=== PATIENT | male | born 1960 | race Caucasian/White ===

== ENCOUNTER 2017-08-26 16:36 | Emergency (ER) | payer OTHER ==
[2017-08-26 17:55] LABS: BASOPHILS 0.7 % (0-2); HEMOGLOBIN 17.8 g/dL (13.5-17.5); IMMATURE GRANULOCYTES 0.3 % (0-5); LYMPHOCYTES 14.9 % (15-50); MCH 30.9 pg (26.0-34.0); MCHC 34.9 g/dL (31.0-37.0); MCV 88.5 fL (80.0-100.0); MEAN PLATELET VOLUME 9.6 fL (7.4-10.4); MONOCYTES 10.3 % (2-11); NEUTROPHILS 63.8 % (40-80); PLATELET COUNT 201 10x3/uL (130-400); RBC 5.76 10x6/uL (4.20-6.10); RDW 12.8 % (11.5-14.5)
[2017-08-26 18:14] LABS: ALBUMIN 3.9 g/dL (3.4-5.0); ANION GAP 14.6 mmol/L (8-16); BILIRUBIN - TOTAL 1.13 mg/dL (0.2-1.3); CALCIUM 9.3 mg/dL (8.5-10.1); CARBON DIOXIDE 25.5 mmol/L (21.0-32.0); CREATININE - SERUM 1.4 mg/dL (0.6-1.3); POTASSIUM - SERUM 4.1 mmol/L (3.5-5.1); PROTEIN - SERUM 8.4 g/dL (6.4-8.2)
[2017-08-26 18:37] LABS: APPEARANCE CLEAR (CLEAR); BILIRUBIN NEGATIVE (NEGATIVE); COLOR YELLOW (YELLOW); GLUCOSE NEGATIVE (NEGATIVE); KETONE NEGATIVE (NEGATIVE); NITRITE NEGATIVE (NEGATIVE); PROTEIN NEGATIVE (NEGATIVE); UROBILINOGEN NORMAL (NORMAL)
[2017-09-21 14:54] VITALS: BMI 26.9
== END 2017-08-26 20:28 | disposition home or self-care (01) ==
LOC: D.ER 16:36
PROVIDERS: Emergency Medicine
DX: R10.11 Right upper quadrant pain (principal); K80.50 Calculus of bile duct without cholangitis or cholecystitis without obstruction

== ENCOUNTER 2017-08-28 03:48 | Inpatient (IN) | payer OTHER ==
[~2017-08-28] VITALS: Ht 188 cm; Wt 106.1 kg
[2017-08-28] VITALS (11 sets, daily range): BP systolic 104–155; BP diastolic 61–88; BMI 30.1
--- NOTE | ~2017-08-28 | DS ---
PATIENT:SHERIN MARSHALL :56 MEDICAL RECORD: [id number] DISCHARGE SUMMARY ADMISSION DATE: 08/30/17 DISCHARGE DATE: 09/04/17 DATE OF ADMISSION: 08/28/2017. DATE OF DISCHARGE: 09/04/2017. ADMISSION DIAGNOSES: 1. Acute cholecystitis. 2. Acute renal failure. 3. Anxiety disorder. DISCHARGE DIAGNOSES: 1. Acute cholecystitis. 2. Anxiety disorder. 3. Acute renal failure, resolved. 4. Small bowel ischemia. 5. Mesenteric thrombosis. CONSULTATIONS: To hematology and oncology with Dr. England. REPORT OF HOSPITALIZATION: The patient was admitted to the hospital with severe abdominal pain. It was felt to be from acute cholecystitis. At the day of surgery, he was noted to have ischemic small bowel, so a small bowel resection was performed at the time of laparoscopic cholecystectomy. Postoperatively, the patient had a postoperative ileus. This eventually resolved and the patient was able to be started on a diet. He still had some signs of ileus at the time of discharge, but the patient was adamant that he was ready to go home and said he has been tolerating clear liquid diet and had a bowel movement. At that point, he was set up for discharge home. Dr. England had been consulted to see the patient and ordered a bunch of lab work that was going to be evaluated with the patient on an outpatient basis. During the patient's hospitalization, his path report came back showing that there were multiple thromboses in the mesenteric vessels from the small bowel resection. The patient was discharged home on a regular diet. DISCHARGE INSTRUCTIONS: Return to clinic or call if any questions or concerns, fevers, chills, nausea, vomiting, or worsening abdominal pain. ACTIVITIES: No heavy lifting or straining for 6 weeks postoperatively. FOLLOWUP: In clinic with me in 1-2 weeks. DISCHARGE MEDICATIONS: Resume home meds with the inclusion of Center 10. TRANSINT:[id number] Voice Confirmation ID: [id number] DOCUMENT ID: [id number] DISCHARGE SUMMARY REPORT [id number] SHERIN MARSHALL CHRISTIAN MD at 1031 CC: [id number] DICTATION DATE: 09/25/17 1408 AEROSPACE ENGINEER OFFICER ARMAMENT: 09/26/17 1102 DIS IN 09/04/17 [place] [id number]
--- NOTE | ~2017-08-28 | OP ---
PATIENT NAME: SHERIN MARSHALL MEDICAL RECORD: [id number] :56 LOCATION:[address] [id number] ADMISSION DATE:08/30/17 SURGEON: CONOR PULIDO MD DATE OF OPERATION: 08/28/2017 PREOPERATIVE DIAGNOSES: 1. Acute cholecystitis. 2. Anxiety disorder. POSTOPERATIVE DIAGNOSES: 1. Acute cholecystitis. 2. Anxiety disorder. 3. Ischemic small bowel. SURGEON: Conor Pulido MD PROCEDURE: 1. Laparoscopic cholecystectomy. 2. Small bowel resection. REPORT OF OPERATION: The patient's abdomen was prepped and draped in sterile fashion. A cutdown was made on the superior aspect of the umbilicus, 0 Vicryls were placed in the fascia bilaterally and the fascia was incised with 15-blade. I then bluntly entered the peritoneal cavity and placed a 12-mm Favian port. After insufflation was obtained, a camera was inserted. Upon immediate inspection, we could see there was some ischemic appearing small bowel present in the left lateral abdomen. At this point, I was able to look around and see there was some ascitic fluid present, but no sign of any succuss or bile. A decision was made just to extend this incision and perform a hand-assisted procedure. The incision was extended superiorly after the 12-mm trocar was removed. A GelPort was inserted. We were able to eviscerate the small bowel through the wound protector of the Gelport and see that there was about a foot to a foot and a half segment of small bowel that was acutely inflamed in the proximal jejunum. The mesentery was also markedly swollen. We could follow this proximally and distally and see that the bowel was normal on each side. There was no sign of necrosis to the bowel. There was no sign of perforation or gangrene. The small bowel was transected proximally and distally on what appeared to be normal appearing bowel using a 55 blue load MARJ stapler. The mesentery was taken down with sequential clamp and tie technique with 2-0 silk ties. A iclm-tf-xxyb anastomosis was performed of the small bowel using a 55 blue load MARJ stapler. We closed off the enterotomies with a 30 blue load TA stapler. Of note, the internal mucosa was viable and bled freely. We then oversewed the staple lines using Lemberted 3-0 silk sutures. This was placed back into the abdominal cavity. At this point, we insufflated the abdomen and placed a 5-mm trocar in the left lateral abdomen and another 5-mm trocar in the right lateral abdomen. We inspected the remainder of the abdominal cavity and saw no signs of any other masses, lesions or necrotic bowel. The right colon and appendix were visualized and appeared to be normal. The stomach was normal. The transverse colon and remaining small bowel appeared to be normal. The sigmoid colon was felt to be normal with no sign of any inflammatory changes and what I could see of the rectum appeared to be viable. I checked the mesentery and did not feel any masses or lesions in the mesentery. The liver itself appeared to be normal with no signs of any masses or lesions. At this point, the inspection of the gallbladder showed it to be distended with some inflammatory changes. A dome down approach was used to take down the OPERATIVE REPORT [id number] ROLANDOSHERIN gallbladder. The cystic artery and cystic duct were eventually dissected free and these were clipped proximally and distally and ligated in standard fashion. The gallbladder was taken out through the Gelport and sent off for permanent specimen. We then irrigated out the abdomen thoroughly with normal saline and reinspected the anastomotic site one last time. This appeared to be viable and actually looked more normal than at the start of the procedure. The omentum was laid over top of this anastomosis. The midline fascia was then closed with a running #1 loop PDS' times 2. The skin was then irrigated out and then closed with ti. COMPLICATIONS: None. CONDITION: Stable. ANESTHESIA: General endotracheal and local. BLOOD LOSS: 200 mL. TRANSINT:[id number] Voice Confirmation ID: [id number] DOCUMENT ID: [id number] CONOR PULIDO MD at 0841 CC: [id number] DICTATION DATE: 08/28/17 140 BANANA LOADER: 08/28/17 1424 [facility] [address] [place] [address]
[2017-08-28 04:33] LABS: APPEARANCE CLEAR (CLEAR); BACTERIA NONE SEEN /hpf (NONE SEEN); BILIRUBIN NEGATIVE (NEGATIVE); COLOR YELLOW (YELLOW); EPITHELIAL CELLS NSEEN /hpf (0-5); GLUCOSE NEGATIVE (NEGATIVE); KETONE NEGATIVE (NEGATIVE); NITRITE NEGATIVE (NEGATIVE); PROTEIN TRACE mg/dL (NEGATIVE); UROBILINOGEN NORMAL (NORMAL); WHITE CELLS - URINE 0-5 /hpf (0-5)
[2017-08-28 04:41] LABS: BASOPHILS 0.4 % (0-2); EOSINOPHILS 0.2 % (0-7); HEMATOCRIT 48.4 % (42.0-54.0); HEMOGLOBIN 16.5 g/dL (13.5-17.5); IMMATURE GRANULOCYTES 0.5 % (0-5); LYMPHOCYTES 6.6 % (15-50); MCH 30.1 pg (26.0-34.0); MCHC 34.1 g/dL (31.0-37.0); MCV 88.3 fL (80.0-100.0); MEAN PLATELET VOLUME 9.6 fL (7.4-10.4); MONOCYTES 9.1 % (2-11); NEUTROPHILS 83.2 % (40-80); RBC 5.48 10x6/uL (4.20-6.10); RDW 12.8 % (11.5-14.5); WBC 9.9 10x3/uL (4.8-10.8)
[2017-08-28 04:44] LABS: PLATELET COUNT 160 10x3/uL (130-400)
[2017-08-28 04:56] LABS: ALBUMIN 3.3 g/dL (3.4-5.0); ANION GAP 16.4 mmol/L (8-16); BILIRUBIN - TOTAL 1.21 mg/dL (0.2-1.3); CALCIUM 8.5 mg/dL (8.5-10.1); CARBON DIOXIDE 23.7 mmol/L (21.0-32.0); CREATININE - SERUM 1.5 mg/dL (0.6-1.3); POTASSIUM - SERUM 4.1 mmol/L (3.5-5.1); PROTEIN - SERUM 7.4 g/dL (6.4-8.2)
[2017-08-28] MEDS ORDERED: LISINOPRIL5 MG PO (07:25)
[2017-08-28] MEDS ORDERED: PAXIL20 MG PO (07:26)
[2017-08-28] MEDS ORDERED: AMBIEN10 MG PO (07:26)
[2017-08-29] VITALS (7 sets, daily range): BP systolic 120–160; BP diastolic 60–86; Ht 188 cm; Wt 106.1 kg
[2017-08-29 06:34] LABS: BASOPHILS 0.1 % (0-2); EOSINOPHILS 0 % (0-7); HEMATOCRIT 44.3 % (42.0-54.0); HEMOGLOBIN 15.4 g/dL (13.5-17.5); IMMATURE GRANULOCYTES 0.2 % (0-5); LYMPHOCYTES 4.4 % (15-50); MCH 30.5 pg (26.0-34.0); MCHC 34.8 g/dL (31.0-37.0); MCV 87.7 fL (80.0-100.0); MEAN PLATELET VOLUME 10.1 fL (7.4-10.4); MONOCYTES 9.4 % (2-11); NEUTROPHILS 85.9 % (40-80); PLATELET COUNT 169 10x3/uL (130-400); RBC 5.05 10x6/uL (4.20-6.10); RDW 12.9 % (11.5-14.5)
[2017-08-29 06:54] LABS: ALBUMIN 2.6 g/dL (3.4-5.0); ANION GAP 13.8 mmol/L (8-16); BILIRUBIN - TOTAL 0.91 mg/dL (0.2-1.3); CARBON DIOXIDE 23.2 mmol/L (21.0-32.0); CREATININE - SERUM 1.2 mg/dL (0.6-1.3); MAGNESIUM - SERUM 1.9 mg/dL (1.8-2.4); PHOSPHOROUS 1.8 mg/dL (2.5-4.9); PROTEIN - SERUM 6.2 g/dL (6.4-8.2)
[2017-08-29 06:55] LABS: WBC 16.5 10x3/uL (4.8-10.8)
[2017-08-30 04:49] VITALS: BP 135/71
[2017-08-30 08:20] VITALS: BP 144/78
[2017-08-30 13:01] VITALS: BP 122/76
[2017-08-30 16:03] VITALS: BP 130/73
[2017-08-30 20:33] VITALS: BP 128/80
[2017-08-30 23:55] VITALS: BP 96/58
[2017-08-31 04:22] VITALS: BP 128/73
[2017-08-31 09:40] LABS: BASOPHILS 0.1 % (0-2); EOSINOPHILS 0.2 % (0-7); HEMOGLOBIN 13.5 g/dL (13.5-17.5); IMMATURE GRANULOCYTES 0.3 % (0-5); LYMPHOCYTES 6.8 % (15-50); MCHC 33.8 g/dL (31.0-37.0); MCV 88.9 fL (80.0-100.0); MEAN PLATELET VOLUME 9.7 fL (7.4-10.4); MONOCYTES 7.1 % (2-11); NEUTROPHILS 85.5 % (40-80); PLATELET COUNT 190 10x3/uL (130-400); RDW 12.7 % (11.5-14.5); WBC 12.1 10x3/uL (4.8-10.8)
[2017-08-31 09:57] LABS: ANION GAP 11.6 mmol/L (8-16); CALCIUM 7.9 mg/dL (8.5-10.1); CARBON DIOXIDE 27.4 mmol/L (21.0-32.0); CREATININE - SERUM 1.1 mg/dL (0.6-1.3); MAGNESIUM - SERUM 2.4 mg/dL (1.8-2.4); PHOSPHOROUS 2.2 mg/dL (2.5-4.9)
[2017-08-31 10:36] VITALS: BP 127/60
[2017-08-31 13:35] VITALS: BP 92/64
[2017-08-31 18:39] VITALS: BP 115/77
[2017-08-31 20:58] VITALS: BP 109/68
[2017-09-01 00:40] VITALS: BP 110/62
[2017-09-01 04:38] VITALS: BP 106/59
[2017-09-01 06:14] LABS: BASOPHILS 0.2 % (0-2); HEMATOCRIT 36.9 % (42.0-54.0); HEMOGLOBIN 12.3 g/dL (13.5-17.5); IMMATURE GRANULOCYTES 0.4 % (0-5); LYMPHOCYTES 14.3 % (15-50); MCH 29.6 pg (26.0-34.0); MCHC 33.3 g/dL (31.0-37.0); MCV 88.7 fL (80.0-100.0); MEAN PLATELET VOLUME 9.8 fL (7.4-10.4); MONOCYTES 7.6 % (2-11); NEUTROPHILS 73.5 % (40-80); PLATELET COUNT 199 10x3/uL (130-400); RBC 4.16 10x6/uL (4.20-6.10); RDW 12.9 % (11.5-14.5)
[2017-09-01 06:22] LABS: WBC 8.1 10x3/uL (4.8-10.8)
[2017-09-01 06:38] LABS: ANION GAP 10.2 mmol/L (8-16); CALCIUM 7.6 mg/dL (8.5-10.1); CARBON DIOXIDE 27.2 mmol/L (21.0-32.0); CREATININE - SERUM 1.2 mg/dL (0.6-1.3); MAGNESIUM - SERUM 2.5 mg/dL (1.8-2.4); PHOSPHOROUS 2.3 mg/dL (2.5-4.9); POTASSIUM - SERUM 3.4 mmol/L (3.5-5.1)
[2017-09-01 09:10] VITALS: BP 102/63
[2017-09-01 13:51] VITALS: BP 91/67
[2017-09-01 20:00] VITALS: BP 109/65
[2017-09-02] VITALS: BP 98/63
[2017-09-02 04:00] VITALS: BP 104/59
[2017-09-02 05:31] LABS: BASOPHILS 0.4 % (0-2); EOSINOPHILS 7.7 % (0-7); HEMATOCRIT 38.5 % (42.0-54.0); IMMATURE GRANULOCYTES 0.7 % (0-5); LYMPHOCYTES 14.6 % (15-50); MCH 29.8 pg (26.0-34.0); MCHC 33.8 g/dL (31.0-37.0); MCV 88.3 fL (80.0-100.0); MEAN PLATELET VOLUME 9.6 fL (7.4-10.4); NEUTROPHILS 67.6 % (40-80); PLATELET COUNT 208 10x3/uL (130-400); RBC 4.36 10x6/uL (4.20-6.10); RDW 12.8 % (11.5-14.5); WBC 8.5 10x3/uL (4.8-10.8)
[2017-09-02 05:49] LABS: ANION GAP 12.3 mmol/L (8-16); CALCIUM 7.7 mg/dL (8.5-10.1); CARBON DIOXIDE 24.2 mmol/L (21.0-32.0); CREATININE - SERUM 1.3 mg/dL (0.6-1.3); MAGNESIUM - SERUM 2.5 mg/dL (1.8-2.4); POTASSIUM - SERUM 3.5 mmol/L (3.5-5.1)
[2017-09-02 05:51] LABS: PHOSPHOROUS 3.6 mg/dL (2.5-4.9)
[2017-09-02 08:04] VITALS: BP 112/61
[2017-09-02 12:18] VITALS: BP 114/68
[2017-09-02 15:39] VITALS: BP 105/61
[2017-09-02 19:54] VITALS: BP 105/53
[2017-09-03] VITALS: BP 126/63
[2017-09-03 04:00] VITALS: BP 119/69
[2017-09-03 07:14] LABS: BASOPHILS 0.5 % (0-2); EOSINOPHILS 11.5 % (0-7); HEMATOCRIT 39.2 % (42.0-54.0); HEMOGLOBIN 13.2 g/dL (13.5-17.5); IMMATURE GRANULOCYTES 1.8 % (0-5); LYMPHOCYTES 14.3 % (15-50); MCH 29.5 pg (26.0-34.0); MCHC 33.7 g/dL (31.0-37.0); MCV 87.7 fL (80.0-100.0); MEAN PLATELET VOLUME 9.2 fL (7.4-10.4); MONOCYTES 10.5 % (2-11); NEUTROPHILS 61.4 % (40-80); PLATELET COUNT 223 10x3/uL (130-400); RBC 4.47 10x6/uL (4.20-6.10); RDW 12.7 % (11.5-14.5); WBC 8.9 10x3/uL (4.8-10.8)
[2017-09-03 07:22] LABS: ANION GAP 11.6 mmol/L (8-16); CALCIUM 7.7 mg/dL (8.5-10.1); CARBON DIOXIDE 25.2 mmol/L (21.0-32.0); CREATININE - SERUM 1.2 mg/dL (0.6-1.3); POTASSIUM - SERUM 3.8 mmol/L (3.5-5.1)
[2017-09-03 08:04] VITALS: BP 106/60
[2017-09-03 12:19] VITALS: BP 121/72
[2017-09-03 19:53] VITALS: BP 120/75
[2017-09-04 00:56] VITALS: BP 123/74
[2017-09-04 04:04] VITALS: BP 115/70
[2017-09-04 06:05] LABS: BASOPHILS 0.5 % (0-2); EOSINOPHILS 6.2 % (0-7); HEMATOCRIT 40.6 % (42.0-54.0); IMMATURE GRANULOCYTES 4.7 % (0-5); LYMPHOCYTES 11.8 % (15-50); MCHC 34.5 g/dL (31.0-37.0); MCV 86.9 fL (80.0-100.0); MEAN PLATELET VOLUME 9.3 fL (7.4-10.4); MONOCYTES 11.4 % (2-11); NEUTROPHILS 65.4 % (40-80); PLATELET COUNT 297 10x3/uL (130-400); RBC 4.67 10x6/uL (4.20-6.10); RDW 12.5 % (11.5-14.5); WBC 12.1 10x3/uL (4.8-10.8)
[2017-09-04 06:21] LABS: ANION GAP 13.4 mmol/L (8-16); CALCIUM 7.9 mg/dL (8.5-10.1); CARBON DIOXIDE 20.7 mmol/L (21.0-32.0); CREATININE - SERUM 1.1 mg/dL (0.6-1.3); MAGNESIUM - SERUM 2.2 mg/dL (1.8-2.4); PHOSPHOROUS 3.1 mg/dL (2.5-4.9); POTASSIUM - SERUM 4.1 mmol/L (3.5-5.1)
[2017-09-04 08:37] VITALS: BP 110/72
[2017-09-04 12:43] VITALS: BP 120/70
[2017-09-04] MEDS ORDERED: HYDROCODONE-APA1 TAB PO (13:53)
[2017-09-05 11:10] LABS: ACTIVATED PROTEIN C-RESISTANCE 2.4 ratio (2.2-3.5)
== END 2017-09-04 15:06 | disposition home or self-care (01) | DRG 330 ==
LOC: D.ER 03:48 → D.MS 06:18 → OBSVTIME 06:18 → D.MS 08-30 21:08
PROVIDERS: Emergency Medicine; Internal Medicine Hematology & Oncology; Surgery
PROC: 0DBA0ZZ Excision of Jejunum, Open Approach (ICD-10-PCS; principal; 2017-08-28 10:00)
PROC: 0FT44ZZ Resection of Gallbladder, Percutaneous Endoscopic Approach (ICD-10-PCS; 2017-08-28 10:00)
PROC: 0D9670Z Drainage of Stomach with Drainage Device, Via Natural or Artificial Opening (ICD-10-PCS; 2017-09-01)
DX: K55.029 Acute infarction of small intestine, extent unspecified (principal); K81.0 Acute cholecystitis; N17.9 Acute kidney failure, unspecified; F41.9 Anxiety disorder, unspecified; K21.9 Gastro-esophageal reflux disease without esophagitis; E86.0 Dehydration

== ENCOUNTER 2017-09-04 22:49 | Inpatient (IN) | payer OTHER ==
[~2017-09-04] VITALS: Ht 188 cm; Wt 104.3 kg
--- NOTE | ~2017-09-04 | DS ---
PATIENT:SHERIN MARSHALL :56 MEDICAL RECORD: [id number] DISCHARGE SUMMARY ADMISSION DATE: 09/05/17 DISCHARGE DATE: 09/10/17 DATE OF ADMISSION: 09/05/2017 DATE OF DISCHARGE: 09/10/2017 ADMISSION DIAGNOSES: 1. Ileus. 2. Pancreatitis. 3. Venous mesenteric thrombosis. 4. Small bowel ischemia. DISCHARGE DIAGNOSES: 1. Ileus. 2. Pancreatitis. 3. Venous mesenteric thrombosis. 4. Small bowel ischemia. PROCEDURE: None. CONSULTATIONS: Dr. England with oncology and hematology. REPORT OF HOSPITALIZATION: The patient was admitted to the hospital with worsening abdominal pain, nausea, vomiting and a CT scan which showed evidence of venous thrombosis throughout the mesenteric vessels. The patient was admitted and started on subcutaneous Lovenox. Hematology was consulted and Dr. England saw the patient. He recommended that the patient be switched over to Eliquis whenever he was eating. Eventually, the patient was able to advance to a diet and once we had a meeting appropriately, he was switched over to Eliquis and discharged home. DISCHARGE INSTRUCTIONS: He will return to clinic or call with any questions or concerns, fevers, chills, nausea, vomiting, or worsening abdominal pain. ACTIVITIES: No heavy lifting or straining for 6 weeks postoperatively. FOLLOWUP: Followup is with me on September [address] England on September 24. TRANSINT:[id number] Voice Confirmation ID: [id number] DOCUMENT ID: [id number] GORDON PULIDO MD at 1031 CC: [id number] DICTATION DATE: 09/25/17 1404 ALLEY CLEANER: 09/26/17 1034 DIS IN 09/10/17 [place] [id number] [place] [id number]
[~2017-09-04 22:49] MED LIST: AMBIEN10 MG PO; HYDROCODONE-APA1 TAB PO; LISINOPRIL5 MG PO; PAXIL20 MG PO
[2017-09-04 23:25] LABS: BASOPHILS 0.5 % (0-2); EOSINOPHILS 1.3 % (0-7); HEMATOCRIT 40.5 % (42.0-54.0); HEMOGLOBIN 14.2 g/dL (13.5-17.5); IMMATURE GRANULOCYTES 6.5 % (0-5); MCH 30.1 pg (26.0-34.0); MCHC 35.1 g/dL (31.0-37.0); MEAN PLATELET VOLUME 9.1 fL (7.4-10.4); MONOCYTES 5.1 % (2-11); NEUTROPHILS 75.6 % (40-80); PLATELET COUNT 295 10x3/uL (130-400); RBC 4.71 10x6/uL (4.20-6.10); RDW 12.5 % (11.5-14.5)
[2017-09-04 23:28] LABS: WBC 19.4 10x3/uL (4.8-10.8)
[2017-09-04 23:43] LABS: ALBUMIN 2.2 g/dL (3.4-5.0); ANION GAP 18.4 mmol/L (8-16); BILIRUBIN - TOTAL 1.11 mg/dL (0.2-1.3); CALCIUM 7.8 mg/dL (8.5-10.1); CARBON DIOXIDE 17.6 mmol/L (21.0-32.0); CREATININE - SERUM 1.2 mg/dL (0.6-1.3); PROTEIN - SERUM 5.9 g/dL (6.4-8.2)
[2017-09-04 23:48] LABS: TROPONIN-I 0.023 ng/mL (0.000-0.060)
[2017-09-05 01:06] LABS: APPEARANCE CLEAR (CLEAR); BILIRUBIN NEGATIVE (NEGATIVE); COLOR DK YELLOW (YELLOW); GLUCOSE NEGATIVE (NEGATIVE); KETONE SMALL mg/dL (NEGATIVE); NITRITE NEGATIVE (NEGATIVE); PROTEIN NEGATIVE (NEGATIVE); UROBILINOGEN NORMAL (NORMAL)
[2017-09-05 06:37] VITALS: BP 103/73; BMI 29.6
[2017-09-05 08:17] VITALS: BP 108/73
[2017-09-05 08:37] LABS: BASOPHILS 0.4 % (0-2); EOSINOPHILS 2.8 % (0-7); HEMATOCRIT 36.9 % (42.0-54.0); HEMOGLOBIN 12.6 g/dL (13.5-17.5); IMMATURE GRANULOCYTES 5.4 % (0-5); LYMPHOCYTES 9.9 % (15-50); MCH 29.6 pg (26.0-34.0); MCHC 34.1 g/dL (31.0-37.0); MCV 86.8 fL (80.0-100.0); MEAN PLATELET VOLUME 9.1 fL (7.4-10.4); MONOCYTES 10.3 % (2-11); NEUTROPHILS 71.2 % (40-80); PLATELET COUNT 266 10x3/uL (130-400); RBC 4.25 10x6/uL (4.20-6.10); RDW 12.7 % (11.5-14.5); WBC 16.6 10x3/uL (4.8-10.8)
[2017-09-05 08:43] LABS: INR 1.22 (0.85-1.17)
[2017-09-05 08:44] LABS: APTT 27.2 SECONDS (22.8-39.4)
[2017-09-05 08:48] LABS: ALBUMIN 1.8 g/dL (3.4-5.0); ALKALINE PHOSPHATASE 95 U/L (46-116); ALT (SGPT) 38 U/L (10-68); AMYLASE - SERUM 111 U/L (25-115); BILIRUBIN - TOTAL 0.63 mg/dL (0.2-1.3); CALC OSMOLALITY 276 mosm/kg (275-300); CALCIUM 7.1 mg/dL (8.5-10.1); CHLORIDE - SERUM 105 mmol/L (98-107); GLUCOSE 108 mg/dL (74-106); LIPASE 806 U/L (73-393); POTASSIUM - SERUM 4.3 mmol/L (3.5-5.1); PROTEIN - SERUM 5.2 g/dL (6.4-8.2); SODIUM 136 mmol/L (136-145); UREA NITROGEN 23 mg/dL (7-18); eGFR NON AFRICAN AMERICAN 81 mL/min (90-120)
[2017-09-05 08:49] LABS: CARBON DIOXIDE 24.3 mmol/L (21.0-32.0)
[2017-09-05 11:24] VITALS: Ht 188 cm; Wt 104.3 kg
[2017-09-05 11:52] VITALS: BP 112/73
[2017-09-05 20:00] VITALS: BP 112/60
[2017-09-06 04:00] VITALS: BP 101/61
[2017-09-06 07:06] LABS: BASOPHILS 0.4 % (0-2); EOSINOPHILS 4.7 % (0-7); HEMATOCRIT 35.7 % (42.0-54.0); HEMOGLOBIN 12.1 g/dL (13.5-17.5); IMMATURE GRANULOCYTES 6.2 % (0-5); LYMPHOCYTES 14.4 % (15-50); MCH 29.7 pg (26.0-34.0); MCHC 33.9 g/dL (31.0-37.0); MCV 87.5 fL (80.0-100.0); MEAN PLATELET VOLUME 9.1 fL (7.4-10.4); MONOCYTES 11.6 % (2-11); NEUTROPHILS 62.7 % (40-80); PLATELET COUNT 268 10x3/uL (130-400); RBC 4.08 10x6/uL (4.20-6.10); RDW 12.8 % (11.5-14.5)
[2017-09-06 07:08] LABS: WBC 9.7 10x3/uL (4.8-10.8)
[2017-09-06 07:35] LABS: ALBUMIN 1.8 g/dL (3.4-5.0); ALKALINE PHOSPHATASE 87 U/L (46-116); ALT (SGPT) 34 U/L (10-68); AMYLASE - SERUM 118 U/L (25-115); BILIRUBIN - TOTAL 0.52 mg/dL (0.2-1.3); CALC OSMOLALITY 272 mosm/kg (275-300); CALCIUM 7.3 mg/dL (8.5-10.1); CARBON DIOXIDE 20.3 mmol/L (21.0-32.0); CHLORIDE - SERUM 106 mmol/L (98-107); CREATININE - SERUM 0.9 mg/dL (0.6-1.3); GLUCOSE 80 mg/dL (74-106); LIPASE 958 U/L (73-393); POTASSIUM - SERUM 3.7 mmol/L (3.5-5.1); PROTEIN - SERUM 5.2 g/dL (6.4-8.2); SODIUM 136 mmol/L (136-145); UREA NITROGEN 18 mg/dL (7-18); eGFR NON AFRICAN AMERICAN > 90 mL/min (90-120)
[2017-09-06 09:18] VITALS: BP 105/64
[2017-09-06 12:09] VITALS: BP 110/68
[2017-09-06 14:23] LABS: ERYTHROCYTE SEDIMENTATION RATE 14 mm/hr (0-20)
[2017-09-06 16:09] VITALS: BP 111/68
[2017-09-06 20:54] VITALS: BP 116/69
[2017-09-07 00:26] VITALS: BP 111/68
[2017-09-07 06:03] VITALS: BP 154/66
[2017-09-07 07:13] LABS: BASOPHILS 0.5 % (0-2); EOSINOPHILS 3.2 % (0-7); HEMATOCRIT 35.5 % (42.0-54.0); HEMOGLOBIN 11.9 g/dL (13.5-17.5); IMMATURE GRANULOCYTES 3.3 % (0-5); LYMPHOCYTES 10.6 % (15-50); MCH 29.5 pg (26.0-34.0); MCHC 33.5 g/dL (31.0-37.0); MCV 87.9 fL (80.0-100.0); NEUTROPHILS 74.4 % (40-80); PLATELET COUNT 314 10x3/uL (130-400); RBC 4.04 10x6/uL (4.20-6.10); WBC 11.1 10x3/uL (4.8-10.8)
[2017-09-07 07:36] LABS: ALBUMIN 1.8 g/dL (3.4-5.0); ALKALINE PHOSPHATASE 98 U/L (46-116); ALT (SGPT) 40 U/L (10-68); AMYLASE - SERUM 139 U/L (25-115); BILIRUBIN - TOTAL 0.51 mg/dL (0.2-1.3); CALC OSMOLALITY 273 mosm/kg (275-300); CARBON DIOXIDE 21.7 mmol/L (21.0-32.0); CHLORIDE - SERUM 106 mmol/L (98-107); GLUCOSE 80 mg/dL (74-106); LIPASE 864 U/L (73-393); POTASSIUM - SERUM 3.7 mmol/L (3.5-5.1); PROTEIN - SERUM 5.3 g/dL (6.4-8.2); SODIUM 137 mmol/L (136-145); UREA NITROGEN 14 mg/dL (7-18); eGFR NON AFRICAN AMERICAN 81 mL/min (90-120)
[2017-09-07 08:21] VITALS: BP 111/64
[2017-09-07 12:09] VITALS: BP 99/55
[2017-09-07 15:32] VITALS: BP 111/64
[2017-09-07 19:52] VITALS: BP 104/64
[2017-09-08 00:01] VITALS: BP 111/67
[2017-09-08 04:17] VITALS: BP 105/74
[2017-09-08 10:38] VITALS: BP 119/64
[2017-09-08 11:17] LABS: ACLA - IGG AB <9 GPL U/mL (0-14); ACLA - IGM AB 20 MPL U/mL (0-12)
[2017-09-08 11:58] LABS: BASOPHILS 0.5 % (0-2); HEMATOCRIT 32.7 % (42.0-54.0); HEMOGLOBIN 10.8 g/dL (13.5-17.5); IMMATURE GRANULOCYTES 1.4 % (0-5); LYMPHOCYTES 11.9 % (15-50); MCH 28.9 pg (26.0-34.0); MCV 87.4 fL (80.0-100.0); MEAN PLATELET VOLUME 9.1 fL (7.4-10.4); MONOCYTES 8.3 % (2-11); NEUTROPHILS 72.9 % (40-80); PLATELET COUNT 308 10x3/uL (130-400); RBC 3.74 10x6/uL (4.20-6.10)
[2017-09-08 12:11] LABS: WBC 7.6 10x3/uL (4.8-10.8)
[2017-09-08 12:16] LABS: ALBUMIN 1.6 g/dL (3.4-5.0); ALKALINE PHOSPHATASE 90 U/L (46-116); ALT (SGPT) 35 U/L (10-68); CALC OSMOLALITY 276 mosm/kg (275-300); CALCIUM 7.2 mg/dL (8.5-10.1); CARBON DIOXIDE 22.2 mmol/L (21.0-32.0); CHLORIDE - SERUM 109 mmol/L (98-107); CREATININE - SERUM 0.8 mg/dL (0.6-1.3); GLUCOSE 72 mg/dL (74-106); LIPASE 607 U/L (73-393); POTASSIUM - SERUM 3.4 mmol/L (3.5-5.1); PROTEIN - SERUM 4.8 g/dL (6.4-8.2); SODIUM 139 mmol/L (136-145); UREA NITROGEN 12 mg/dL (7-18); eGFR NON AFRICAN AMERICAN > 90 mL/min (90-120)
[2017-09-08 12:19] LABS: AMYLASE - SERUM 93 U/L (25-115)
[2017-09-08 13:22] LABS: HAPTOGLOBIN 160 mg/dL (34-200)
[2017-09-08 15:04] VITALS: BP 119/64
[2017-09-08 19:08] VITALS: BP 123/75
[2017-09-08 20:24] VITALS: BP 123/69
[2017-09-09 00:16] VITALS: BP 125/71
[2017-09-09 04:05] VITALS: BP 114/73
[2017-09-09 04:41] LABS: BASOPHILS 0.4 % (0-2); HEMATOCRIT 31.8 % (42.0-54.0); HEMOGLOBIN 10.6 g/dL (13.5-17.5); IMMATURE GRANULOCYTES 1.1 % (0-5); LYMPHOCYTES 20.1 % (15-50); MCH 29.1 pg (26.0-34.0); MCHC 33.3 g/dL (31.0-37.0); MCV 87.4 fL (80.0-100.0); MEAN PLATELET VOLUME 8.9 fL (7.4-10.4); MONOCYTES 6.3 % (2-11); NEUTROPHILS 67.1 % (40-80); PLATELET COUNT 329 10x3/uL (130-400); RBC 3.64 10x6/uL (4.20-6.10); RDW 12.9 % (11.5-14.5)
[2017-09-09 05:10] LABS: ALBUMIN 1.6 g/dL (3.4-5.0); ALKALINE PHOSPHATASE 86 U/L (46-116); ALT (SGPT) 32 U/L (10-68); AMYLASE - SERUM 85 U/L (25-115); CALC OSMOLALITY 271 mosm/kg (275-300); CALCIUM 7.3 mg/dL (8.5-10.1); CARBON DIOXIDE 22.8 mmol/L (21.0-32.0); CHLORIDE - SERUM 108 mmol/L (98-107); CREATININE - SERUM 0.9 mg/dL (0.6-1.3); GLUCOSE 84 mg/dL (74-106); LIPASE 515 U/L (73-393); POTASSIUM - SERUM 3.3 mmol/L (3.5-5.1); PROTEIN - SERUM 4.8 g/dL (6.4-8.2); SODIUM 137 mmol/L (136-145); UREA NITROGEN 10 mg/dL (7-18); eGFR NON AFRICAN AMERICAN > 90 mL/min (90-120)
[2017-09-09 08:40] VITALS: BP 115/69
[2017-09-09 11:43] VITALS: BP 123/68
[2017-09-09 14:48] LABS: PROTEIN S - FREE 62 % (57-157); PROTEIN S - FREE 77 % (57-157); PROTEIN S - FUNCTIONAL 65 % (63-140); PROTEIN S - TOTAL 62 % (60-150); PROTEIN S - TOTAL 64 % (60-150)
[2017-09-09 15:39] VITALS: BP 115/71
[2017-09-09 20:00] VITALS: BP 117/65
[2017-09-10 06:16] LABS: LUPUS - INTERPRETATION Comment: (()); LUPUS - THROMBIN TIME 17.5 sec (0.0-23.0); LUPUS - dRVVT 57.5 sec (0.0-47.0); PTT-LA 48.2 sec (0.0-51.9)
[2017-09-10 06:19] LABS: EOSINOPHILS 6.4 % (0-7); HEMATOCRIT 32.6 % (42.0-54.0); LYMPHOCYTES 22.4 % (15-50); MCH 29.3 pg (26.0-34.0); MCHC 33.7 g/dL (31.0-37.0); MCV 86.7 fL (80.0-100.0); MEAN PLATELET VOLUME 8.8 fL (7.4-10.4); MONOCYTES 6.9 % (2-11); NEUTROPHILS 62.3 % (40-80); PLATELET COUNT 351 10x3/uL (130-400); RBC 3.76 10x6/uL (4.20-6.10); WBC 5.9 10x3/uL (4.8-10.8)
[2017-09-10 06:20] VITALS: BP 129/70
[2017-09-10 06:35] LABS: CALC OSMOLALITY 272 mosm/kg (275-300); CALCIUM 7.2 mg/dL (8.5-10.1); CARBON DIOXIDE 22.2 mmol/L (21.0-32.0); CHLORIDE - SERUM 107 mmol/L (98-107); CREATININE - SERUM 0.8 mg/dL (0.6-1.3); GLUCOSE 85 mg/dL (74-106); LIPASE 426 U/L (73-393); POTASSIUM - SERUM 3.5 mmol/L (3.5-5.1); SODIUM 138 mmol/L (136-145); eGFR NON AFRICAN AMERICAN > 90 mL/min (90-120)
[2017-09-10 06:38] LABS: AMYLASE - SERUM 63 U/L (25-115); UREA NITROGEN 6 mg/dL (7-18)
[2017-09-10 08:34] VITALS: BP 105/68
[2017-09-10 11:48] VITALS: BP 117/70
[2017-09-11 17:12] LABS: PROTEIN C - ANTIGEN 62 % (60-150); PROTEIN C - FUNCTIONAL 64 % (73-180)
== END 2017-09-10 14:26 | disposition home or self-care (01) | DRG 393 ==
LOC: D.ER 22:49 → D.MS 09-05 05:39
PROVIDERS: Family Medicine; Internal Medicine Hematology & Oncology; Surgery
PROC: 02HV33Z Insertion of Infusion Device into Superior Vena Cava, Percutaneous Approach (ICD-10-PCS; principal; 2017-09-08)
PROC: B548ZZA Ultrasonography of Superior Vena Cava, Guidance (ICD-10-PCS; 2017-09-08)
DX: K55.9 Vascular disorder of intestine, unspecified (principal); K85.90 Acute pancreatitis without necrosis or infection, unspecified; I82.890 Acute embolism and thrombosis of other specified veins

== ENCOUNTER 2017-09-19 12:06 | Inpatient (IN) | payer OTHER ==
[~2017-09-19] VITALS: Ht 188 cm; Wt 95.3 kg
[2017-09-19 12:48] LABS: BASOPHILS 0.7 % (0-2); EOSINOPHILS 4.2 % (0-7); HEMATOCRIT 42.8 % (42.0-54.0); HEMOGLOBIN 14.3 g/dL (13.5-17.5); IMMATURE GRANULOCYTES 0.4 % (0-5); LYMPHOCYTES 21.4 % (15-50); MCH 29.5 pg (26.0-34.0); MCHC 33.4 g/dL (31.0-37.0); MCV 88.2 fL (80.0-100.0); MEAN PLATELET VOLUME 9.2 fL (7.4-10.4); MONOCYTES 14.4 % (2-11); NEUTROPHILS 58.9 % (40-80); PLATELET COUNT 441 10x3/uL (130-400); RBC 4.85 10x6/uL (4.20-6.10); WBC 7.1 10x3/uL (4.8-10.8)
[2017-09-19 13:03] LABS: ALBUMIN 2.5 g/dL (3.4-5.0); ANION GAP 13.7 mmol/L (8-16); BILIRUBIN - TOTAL 0.6 mg/dL (0.2-1.3); CALCIUM 9.3 mg/dL (8.5-10.1); CARBON DIOXIDE 25.5 mmol/L (21.0-32.0); CREATININE - SERUM 1.4 mg/dL (0.6-1.3); POTASSIUM - SERUM 4.2 mmol/L (3.5-5.1); PROTEIN - SERUM 7.2 g/dL (6.4-8.2)
[2017-09-19 13:10] LABS: APPEARANCE CLEAR (CLEAR); BILIRUBIN NEGATIVE (NEGATIVE); COLOR DK YELLOW (YELLOW); GLUCOSE NEGATIVE (NEGATIVE); KETONE NEGATIVE (NEGATIVE); NITRITE NEGATIVE (NEGATIVE); PROTEIN TRACE mg/dL (NEGATIVE); UROBILINOGEN NORMAL (NORMAL)
[2017-09-19 13:11] LABS: BACTERIA MODERATE /hpf (NONE SEEN); EPITHELIAL CELLS 0-5 /hpf (0-5); MUCUS >1+ /lpf (NONE SEEN); RED CELLS - URINE 0-5 /hpf (0-5); WHITE CELLS - URINE 0-5 /hpf (0-5)
[2017-09-19] MEDS ORDERED: PROTONIX40 MG PO (20:37)
[2017-09-19] MEDS ORDERED: DILAUDID2 MG PO (20:37)
[2017-09-19] MEDS ORDERED: ELIQUIS5 MG PO (20:38)
[2017-09-19 22:20] VITALS: BP 97/57; BMI 27.0
[2017-09-20 04:00] VITALS: BP 90/59
[2017-09-20 04:44] LABS: BASOPHILS 0.9 % (0-2); EOSINOPHILS 6.4 % (0-7); HEMOGLOBIN 12.3 g/dL (13.5-17.5); IMMATURE GRANULOCYTES 0.5 % (0-5); LYMPHOCYTES 31.6 % (15-50); MCH 29.1 pg (26.0-34.0); MCHC 33.2 g/dL (31.0-37.0); MCV 87.5 fL (80.0-100.0); MEAN PLATELET VOLUME 9.2 fL (7.4-10.4); MONOCYTES 14.8 % (2-11); NEUTROPHILS 45.8 % (40-80); RBC 4.23 10x6/uL (4.20-6.10); WBC 5.5 10x3/uL (4.8-10.8)
[2017-09-20 04:47] LABS: PLATELET COUNT 325 10x3/uL (130-400)
[2017-09-20 05:02] LABS: ALBUMIN 2.1 g/dL (3.4-5.0); ANION GAP 11.3 mmol/L (8-16); BILIRUBIN - TOTAL 0.7 mg/dL (0.2-1.3); CALCIUM 8.3 mg/dL (8.5-10.1); CARBON DIOXIDE 24.4 mmol/L (21.0-32.0); CREATININE - SERUM 1.2 mg/dL (0.6-1.3); POTASSIUM - SERUM 4.7 mmol/L (3.5-5.1); PROTEIN - SERUM 5.4 g/dL (6.4-8.2)
[2017-09-20 09:27] VITALS: BP 92/56
[2017-09-20 13:40] VITALS: BP 92/55
[2017-09-20 20:00] VITALS: BP 92/61
[2017-09-21 04:00] VITALS: BP 166/71
[2017-09-21 09:23] VITALS: BP 101/60
[2017-09-21 14:42] VITALS: BP 108/70
[2017-09-21 14:54] VITALS: Ht 188 cm; Wt 95.3 kg
== END 2017-09-21 17:15 | disposition home or self-care (01) | DRG 390 ==
LOC: D.ER 12:06 → D.MS 17:28
PROVIDERS: Emergency Medicine; Family Medicine
DX: K56.609 Unspecified intestinal obstruction, unspecified as to partial versus complete obstruction (principal); R06.6 Hiccough

== ENCOUNTER → 2017-10-21 11:36 | Outpatient (CLI) | payer OTHER ==
[2017-09-21 14:54] VITALS: BMI 26.9
[~2017-10-21 11:36] MED LIST changes: +DILAUDID2 MG PO; +ELIQUIS5 MG PO; +PROTONIX40 MG PO
== END | disposition home or self-care (01) ==
LOC: D.LAB 11:36
DX: B96.81 Helicobacter pylori [H. pylori] as the cause of diseases classified elsewhere (principal); R10.9 Unspecified abdominal pain

== ENCOUNTER → 2017-11-25 10:21 | Outpatient (CLI) | payer OTHER ==
[2017-09-21 14:54] VITALS: BMI 26.9
[2017-11-25 10:54] LABS: BASOPHILS 0.4 % (0-2); EOSINOPHILS 2.1 % (0-7); HEMATOCRIT 46.4 % (42.0-54.0); HEMOGLOBIN 16.1 g/dL (13.5-17.5); IMMATURE GRANULOCYTES 0.3 % (0-5); LYMPHOCYTES 20.6 % (15-50); MCH 29.7 pg (26.0-34.0); MCHC 34.7 g/dL (31.0-37.0); MCV 85.5 fL (80.0-100.0); MEAN PLATELET VOLUME 9.8 fL (7.4-10.4); MONOCYTES 8.7 % (2-11); NEUTROPHILS 67.9 % (40-80); RBC 5.43 10x6/uL (4.20-6.10); RDW 14.1 % (11.5-14.5); WBC 7.1 10x3/uL (4.8-10.8)
[2017-11-25 11:10] LABS: PLATELET COUNT 203 10x3/uL (130-400)
[2017-11-25 11:16] LABS: ALBUMIN 3.1 g/dL (3.4-5.0); ANION GAP 4.6 mmol/L (8-16); BILIRUBIN - DIRECT 0.21 mg/dL (0.00-0.30); BILIRUBIN - INDIRECT 0.38 mg/dL (0.00-1.00); BILIRUBIN - TOTAL 0.59 mg/dL (0.2-1.3); CALCIUM 8.5 mg/dL (8.5-10.1); CARBON DIOXIDE 27.9 mmol/L (21.0-32.0); CREATININE - SERUM 1.1 mg/dL (0.6-1.3); POTASSIUM - SERUM 3.5 mmol/L (3.5-5.1); PROTEIN - SERUM 6.5 g/dL (6.4-8.2)
[2017-11-25 13:42] LABS: ERYTHROCYTE SEDIMENTATION RATE 1 mm/hr (0-20)
== END | disposition home or self-care (01) ==
LOC: D.LAB 10:21
PROVIDERS: Family Medicine
DX: R10.9 Unspecified abdominal pain (principal); K56.609 Unspecified intestinal obstruction, unspecified as to partial versus complete obstruction; K57.92 Diverticulitis of intestine, part unspecified, without perforation or abscess without bleeding

== ENCOUNTER → 2017-12-02 16:35 | Outpatient (CLI) | payer OTHER ==
[2017-09-21 14:54] VITALS: BMI 26.9
== END | disposition home or self-care (01) ==
LOC: D.CT 16:35
DX: R10.9 Unspecified abdominal pain (principal); R11.2 Nausea with vomiting, unspecified

== ENCOUNTER 2017-12-05 16:29 | Inpatient (IN) | payer OTHER ==
[~2017-12-05] VITALS: Ht 188 cm; Wt 86.3 kg
--- NOTE | ~2017-12-05 | HP ---
PATIENT: SHERIN MARSHALL MEDICAL RECORD: [id number] ACCOUNT: [id number] LOCATION:[address] : 56 ADMISSION DATE: 12/05/17 HISTORY AND PHYSICAL EXAMINATION DATE OF ADMISSION: 12/05/2017 CHIEF COMPLAINT: Abdominal pain, nausea and vomiting. HISTORY OF PRESENT ILLNESS: This is a 57-year-old male who has been having GI problems off and on since he underwent cholecystectomy and partial small bowel resection for ischemic bowel in August of this year. 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 He is on Eliquis for that. His called stating that his abdominal pains are worse. I reviewed CT scan that he just had done on 12/02/17 and told his that he needs to get to the ER and let them evaluate him. In the ER, his lab was fairly unremarkable except small ketones in his urine and mild elevation of AST and alkaline phosphatase. Repeat CT of abdomen and pelvis compared to the one on 12/02/17 showed continued partial small-bowel obstruction. There was a fairly high fecal load in the colon, which suggested this was not a chronic obstruction. There was no evidence of bowel perforation. There was fairly marked inflammation about the small bowel. He is admitted and general surgery is consulted. PAST MEDICAL HISTORY: 1. 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 England. 2. Insomnia. PAST SURGICAL HISTORY: In August of this year, he underwent cholecystectomy and partial small bowel resection for ischemic small bowel. ALLERGIES: PENICILLIN. HOME MEDICATIONS: Include Eliquis 5 mg once a day, Ambien 10 mg at bedtime. He is taking Protonix 40 mg a day, Zofran ODT, Phenergan, and Levsin, all p.r.n. HABITS: Never smokes. No alcohol or drugs. SOCIAL HISTORY: He is and works for the [employer]. FAMILY HISTORY: Father at 84 of old age. He had a history of leukemia. Mother at 72 of lung cancer. REVIEW OF SYSTEMS: GENERAL: The patient states he has lost approximately 60 pounds since his surgery in August. HEENT: No particular sinus or allergy problems. RESPIRATORY: No history of asthma or emphysema. CARDIAC: No heart problems. GASTROINTESTINAL: See above history. GENITOURINARY: No problems. MUSCULOSKELETAL: No significant problems. NEUROLOGIC: No migraines or seizures. PSYCHIATRIC: No depression or melancholia. HISTORY AND PHYSICAL [id number] SHERIN MARSHALL PHYSICAL EXAMINATION: VITAL SIGNS: Temperature 99.0, pulse 67, respirations 18, blood pressure 134/89, O2 sat 96%. GENERAL: He is awake and alert. He does not appear in acute distress. He has an NG tube in the right naris. HEENT: Otherwise is unremarkable. NECK: Supple. HEART: Regular rate and rhythm. LUNGS: Clear. ABDOMEN: Soft, nontender at this time. Bowel sounds are active. EXTREMITIES: No edema. LABORATORY DATA: CBC is normal except hemoglobin is 16.8 and hematocrit is 49.1. Basic metabolic panel was unremarkable. AST elevated at 60, ALT normal at 65, and alkaline phosphatase elevated at 169. Urinalysis okay except for small ketones. Amylase and lipase are okay. CT of abdomen and pelvis shows continued small-bowel obstruction compared to the CT on 12/02/17. There is a fairly high fecal load in the colon. There is no evidence of bowel perforation. There was marked inflammation about the small bowel. ASSESSMENT: 1. Small-bowel obstruction. 2. History of ischemic small bowel, status post partial resection in August 2017. PLAN: General surgery has been consulted. Eliquis is held. Started on Lovenox. He is given IV fluids. He is n.p.o. Other tests or procedures as warranted. TRANSINT:[id number] Voice Confirmation ID: [id number] DOCUMENT ID: [id number] FAROOQ ANTONIO MD at 1712 CC: [id number] DICTATION DATE: 12/06/17 1437 UNIVERSITY MANAGER: 12/06/17 1513 ADM IN [facility] [address] [place] [address]
--- NOTE | ~2017-12-05 | OP ---
PATIENT NAME: SHERIN MARSHALL MEDICAL RECORD: [id number] :56 LOCATION:D.M2 D.2137 ADMISSION DATE:12/05/17 SURGEON: CONOR PULIDO MD DATE OF OPERATION: 12/07/2017 PREOPERATIVE DIAGNOSES: 1. Small-bowel obstruction. 2. Nonocclusive mesenteric ischemia. POSTOPERATIVE DIAGNOSES: 1. Small-bowel obstruction. 2. Nonocclusive mesenteric ischemia. PROCEDURE: 1. Laparoscopic to open laparotomy. 2. Small bowel resection. 3. Lysis of adhesions. SURGEON: Conor Pulido MD REPORT OF PROCEDURE: The patient's abdomen was prepped and draped in sterile fashion. A Veress needle was inserted in the left upper quadrant and the abdomen was insufflated. A 5-mm Visiport trocar was inserted in the right lateral abdomen. At this point, we could see the Veress needle and there was no sign of any injury to bowel or surrounding structures. The Veress needle was removed and a 5-mm trocar was placed in the right upper quadrant. Using this, I could see there were a lot of adhesions present in the midline. Careful dissection was performed of the mesentery off the anterior abdominal wall, leading to a very inflamed small bowel that was adherent to the midline through a previous laparotomy incision. I tried multiple areas to dissect this off of the anterior abdominal wall and at one point, it just tore off the abdominal wall and we could see the internal lumen of the small bowel. The small bowel itself proximal to this was very distended and swollen. I assume this was our anastomotic site that appeared to be dilated on the preoperative CT scan. At this point, I just took down what I could from the midline and then performed a midline laparotomy. We took down the remainder of the adhesions from the midline at this point. Once in the abdominal cavity, we freed up any adhesions that were present. We noted that this previous anastomotic site was very inflamed and swollen with visible edema. Once the adhesions were taken down, we were able to eviscerate the small bowel out of the abdominal cavity. The anastomotic site was visualized and noted to be extremely tight on it efferent limb with an opening probably 0.5 cm in greatest diameter. The small bowel was then transected proximal and distal to the enterotomies over the anastomosis using blue loads 75 MARJ staplers. The mesentery was taken down with sequential clamp and tie technique and this piece of small bowel was sent off for permanent specimen. We then performed a tyya-oa-nfpu functional anastomosis using a 70 blue load MARJ stapler. The enterotomies were then closed with a 30 blue load TA stapler. We oversewed the staple lines using Lemberted 3-0 silks. At this point, the anastomosis was placed back into the abdominal cavity. We irrigated out the abdomen thoroughly with 6 liters of normal saline. There was some spillage of luminal contents during the procedure and all this was cleaned out thoroughly. We then closed the midline fascia using running #1 loop PDS times 2. The subcutaneous tissue was reapproximated with interrupted 3-0 Vicryl and the skin was closed with ti. A total of 10 mL of 0.25% Marcaine with epinephrine was infused into the surrounding tissues. OPERATIVE REPORT [id number] SHERIN MARSHALL COMPLICATIONS: None. CONDITION: Stable. ANESTHESIA: General endotracheal and local. BLOOD LOSS: 50 mL. TRANSINT:[id number] Voice Confirmation ID: [id number] DOCUMENT ID: [id number] CONOR PULIDO MD at 0801 CC: [id number] DICTATION DATE: 12/07/17 1525 MACHINE SORTER: 12/07/17 1549 ADM IN [facility] [address] [place] [address]
[2017-12-05 17:50] LABS: BASOPHILS 0.4 % (0-2); EOSINOPHILS 1.7 % (0-7); HEMATOCRIT 49.1 % (42.0-54.0); HEMOGLOBIN 16.8 g/dL (13.5-17.5); IMMATURE GRANULOCYTES 0.2 % (0-5); LYMPHOCYTES 16.1 % (15-50); MCH 28.9 pg (26.0-34.0); MCHC 34.2 g/dL (31.0-37.0); MCV 84.4 fL (80.0-100.0); MEAN PLATELET VOLUME 10.2 fL (7.4-10.4); NEUTROPHILS 72.6 % (40-80); PLATELET COUNT 233 10x3/uL (130-400); RBC 5.82 10x6/uL (4.20-6.10); RDW 13.9 % (11.5-14.5); WBC 8.3 10x3/uL (4.8-10.8)
[2017-12-05 18:10] LABS: APPEARANCE HAZY (CLEAR); BILIRUBIN NEGATIVE (NEGATIVE); COLOR YELLOW (YELLOW); GLUCOSE NEGATIVE (NEGATIVE); KETONE SMALL mg/dL (NEGATIVE); NITRITE NEGATIVE (NEGATIVE); PROTEIN NEGATIVE (NEGATIVE); UROBILINOGEN NORMAL (NORMAL)
[2017-12-05 18:19] LABS: ALKALINE PHOSPHATASE 169 U/L (46-116); ALT (SGPT) 65 U/L (10-68); CALC OSMOLALITY 282 mosm/kg (275-300); CALCIUM 8.7 mg/dL (8.5-10.1); CARBON DIOXIDE 29.9 mmol/L (21.0-32.0); CHLORIDE - SERUM 102 mmol/L (98-107); GLUCOSE 102 mg/dL (74-106); POTASSIUM - SERUM 3.4 mmol/L (3.5-5.1); PROTEIN - SERUM 6.7 g/dL (6.4-8.2); SODIUM 141 mmol/L (136-145); UREA NITROGEN 18 mg/dL (7-18); eGFR NON AFRICAN AMERICAN 81 mL/min (90-120)
[2017-12-05 18:20] LABS: AMYLASE - SERUM 55 U/L (25-115); LIPASE 180 U/L (73-393)
[2017-12-05 19:00] VITALS: BP 132/77
[2017-12-05 22:41] VITALS: BP 125/72
[2017-12-06 04:30] VITALS: BP 138/86
[2017-12-06 08:53] VITALS: BP 136/80
[2017-12-06 12:19] VITALS: BP 134/89
[2017-12-06 16:53] VITALS: BP 129/77
[2017-12-06 20:48] VITALS: BP 141/79
[2017-12-07 01:05] VITALS: BP 132/82
[2017-12-07 05:15] VITALS: BP 112/72
[2017-12-07 08:19] LABS: CALC OSMOLALITY 274 mosm/kg (275-300); CALCIUM 8.3 mg/dL (8.5-10.1); CARBON DIOXIDE 31.1 mmol/L (21.0-32.0); CHLORIDE - SERUM 106 mmol/L (98-107); GLUCOSE 103 mg/dL (74-106); POTASSIUM - SERUM 3.2 mmol/L (3.5-5.1); SODIUM 138 mmol/L (136-145); eGFR NON AFRICAN AMERICAN 81 mL/min (90-120)
[2017-12-07 08:21] LABS: UREA NITROGEN 9 mg/dL (7-18)
[2017-12-07 08:42] VITALS: BP 110/66
[2017-12-07 09:33] LABS: BASOPHILS 0.4 % (0-2); EOSINOPHILS 2.9 % (0-7); HEMATOCRIT 43.9 % (42.0-54.0); HEMOGLOBIN 14.9 g/dL (13.5-17.5); IMMATURE GRANULOCYTES 0.3 % (0-5); LYMPHOCYTES 16.4 % (15-50); MCHC 33.9 g/dL (31.0-37.0); MCV 85.4 fL (80.0-100.0); MEAN PLATELET VOLUME 10.4 fL (7.4-10.4); MONOCYTES 11.8 % (2-11); NEUTROPHILS 68.2 % (40-80); RBC 5.14 10x6/uL (4.20-6.10); RDW 13.9 % (11.5-14.5); WBC 7.4 10x3/uL (4.8-10.8)
[2017-12-07 09:37] LABS: PLATELET COUNT 181 10x3/uL (130-400)
[2017-12-07 14:19] VITALS: Ht 188 cm; Wt 86.3 kg
[2017-12-07 16:40] VITALS: BP 104/63
[2017-12-07 20:48] VITALS: BP 113/74
[2017-12-08 06:57] VITALS: BP 108/75
[2017-12-08 07:50] LABS: BASOPHILS 0.1 % (0-2); EOSINOPHILS 0.1 % (0-7); HEMATOCRIT 47.6 % (42.0-54.0); HEMOGLOBIN 16.3 g/dL (13.5-17.5); IMMATURE GRANULOCYTES 0.2 % (0-5); MCH 29.1 pg (26.0-34.0); MCHC 34.2 g/dL (31.0-37.0); MCV 84.8 fL (80.0-100.0); MEAN PLATELET VOLUME 10.4 fL (7.4-10.4); MONOCYTES 7.5 % (2-11); NEUTROPHILS 85.1 % (40-80); PLATELET COUNT 213 10x3/uL (130-400); RBC 5.61 10x6/uL (4.20-6.10); RDW 14.2 % (11.5-14.5)
[2017-12-08 07:51] LABS: WBC 13.5 10x3/uL (4.8-10.8)
[2017-12-08 08:02] LABS: CALC OSMOLALITY 275 mosm/kg (275-300); CALCIUM 7.9 mg/dL (8.5-10.1); CARBON DIOXIDE 26.2 mmol/L (21.0-32.0); CHLORIDE - SERUM 105 mmol/L (98-107); CREATININE - SERUM 0.9 mg/dL (0.6-1.3); GLUCOSE 118 mg/dL (74-106); SODIUM 138 mmol/L (136-145); UREA NITROGEN 9 mg/dL (7-18); eGFR NON AFRICAN AMERICAN > 90 mL/min (90-120)
[2017-12-08 08:03] LABS: POTASSIUM - SERUM 3.7 mmol/L (3.5-5.1)
[2017-12-08 09:18] VITALS: BP 140/81
[2017-12-08 12:39] VITALS: BP 113/73
[2017-12-08 16:34] VITALS: BP 93/57
[2017-12-08 21:08] VITALS: BP 88/59
[2017-12-09 01:40] VITALS: BP 88/52
[2017-12-09 05:40] VITALS: BP 92/59
[2017-12-09 06:51] LABS: BASOPHILS 0.2 % (0-2); EOSINOPHILS 1.6 % (0-7); HEMATOCRIT 42.3 % (42.0-54.0); HEMOGLOBIN 14.1 g/dL (13.5-17.5); IMMATURE GRANULOCYTES 0.3 % (0-5); MCH 28.7 pg (26.0-34.0); MCHC 33.3 g/dL (31.0-37.0); MEAN PLATELET VOLUME 10.4 fL (7.4-10.4); MONOCYTES 7.3 % (2-11); NEUTROPHILS 84.6 % (40-80); RBC 4.92 10x6/uL (4.20-6.10)
[2017-12-09 06:56] LABS: PLATELET COUNT 166 10x3/uL (130-400); WBC 9.7 10x3/uL (4.8-10.8)
[2017-12-09 07:17] LABS: ANION GAP 5.5 mmol/L (8-16); CARBON DIOXIDE 31.3 mmol/L (21.0-32.0); CREATININE - SERUM 1.1 mg/dL (0.6-1.3); MAGNESIUM - SERUM 1.7 mg/dL (1.8-2.4); PHOSPHOROUS 2.1 mg/dL (2.5-4.9); POTASSIUM - SERUM 3.8 mmol/L (3.5-5.1)
[2017-12-09 09:38] VITALS: BP 96/64
[2017-12-09 12:00] VITALS: BP 93/62
[2017-12-09 17:35] VITALS: BP 103/66
[2017-12-09 20:36] VITALS: BP 103/60
[2017-12-10 00:51] VITALS: BP 78/57
[2017-12-10 06:20] VITALS: BP 91/64
[2017-12-10 08:29] VITALS: BP 116/71
[2017-12-10 20:08] VITALS: BP 129/56
[2017-12-10 23:15] VITALS: BP 109/48
[2017-12-11 04:33] VITALS: BP 114/54
[2017-12-11 19:44] VITALS: BP 131/61
[2017-12-12] VITALS: BP 135/42
[2017-12-12 04:00] VITALS: BP 155/62
[2017-12-12 08:00] VITALS: BP 155/71
[2017-12-12 08:57] VITALS: BP 171/76
[2017-12-12 12:32] VITALS: BP 128/77
[2017-12-12 16:09] VITALS: BP 122/78
[2017-12-13 04:00] VITALS: BP 185/63
[2017-12-13 09:24] VITALS: BP 155/57
[2017-12-13 12:40] VITALS: BP 122/73
[2017-12-13 16:39] VITALS: BP 125/80
[2017-12-14] VITALS: BP 131/83
[2017-12-14 04:00] VITALS: BP 137/82
[2017-12-14 08:55] VITALS: BP 130/77
[2017-12-14 12:26] VITALS: BP 129/78
== END 2017-12-14 14:34 | disposition home or self-care (01) | DRG 330 ==
LOC: D.ER 16:29 → D.M2 21:37
PROVIDERS: Family Medicine; Surgery
PROC: 0DT80ZZ Resection of Small Intestine, Open Approach (ICD-10-PCS; principal; 2017-12-07 12:00)
PROC: 05HC33Z Insertion of Infusion Device into Left Basilic Vein, Percutaneous Approach (ICD-10-PCS; 2017-12-10)
PROC: B54NZZA Ultrasonography of Left Upper Extremity Veins, Guidance (ICD-10-PCS; 2017-12-10)
DX: K56.51 Intestinal adhesions [bands], with partial obstruction (principal); K55.9 Vascular disorder of intestine, unspecified; E87.6 Hypokalemia; I95.9 Hypotension, unspecified; F43.10 Post-traumatic stress disorder, unspecified; F32.9 Major depressive disorder, single episode, unspecified; R50.9 Fever, unspecified

== ENCOUNTER 2018-04-03 14:14 | Emergency (ER) | payer OTHER ==
[~2018-04-03] VITALS: Ht 188 cm; Wt 104.5 kg
[2018-04-03 14:21] VITALS: Ht 188 cm; Wt 104.5 kg
[2018-04-03 15:39] VITALS: BP 142/88
== END 2018-04-03 15:41 | disposition home or self-care (01) ==
LOC: D.ER 14:14
DX: S06.0X9A Concussion with loss of consciousness of unspecified duration, initial encounter (principal); W18.30XA Fall on same level, unspecified, initial encounter; Y93.89 Activity, other specified; Y92.89 Other specified places as the place of occurrence of the external cause; S00.01XA Abrasion of scalp, initial encounter